=== PATIENT | male | born 1945 | race Caucasian/White ===

== ENCOUNTER 2019-07-30 08:42 | Emergency (ER) | payer OTHER ==
[~2019-07-30] VITALS: Ht 182.9 cm; Wt 88.5 kg
[~2019-07-30 08:42] MED LIST: ASPIRIN EC325 M1 PO; ASPIRIN325 PO; AUGMENTIN 875875 M1 PO; BENAZEPRIL HCL20 MG PO; BYSTOLIC 5 MG5 M1 PO; CELEXA 20 MG TA20 M1 PO; COZAAR100 MG PO; CRESTOR10 MG PO; EFFIENT10 MG PO; IMDUR PO; LOW DOSE ASPIRI81 M1 PO; NITROSTAT0.4 MG SL; NORVASC 2.5 MG2.5 M1 PO; PERCOCET 5-3251 EACH; PERCOCET 5-3251 EACH PO; PROTONIX40 M2 PO; TOPROL XL50 MG PO
[2019-07-30] MEDS ORDERED: NORVASC 2.5 MG2.5 M1 PO (08:55)
[2019-07-30] MEDS ORDERED: TRADJENTA5 MG (08:56)
[2019-07-30] MEDS ORDERED: METFORMIN HCL500 M3 PO (08:56)
[2019-07-30] MEDS ORDERED: IRON18 M1 PO (08:56)
[2019-07-30] MEDS ORDERED: NORCO 5-325 TA1 EAC1 PO (10:03)
[2019-07-30 10:55] VITALS: BP 168/97
== END 2019-07-30 10:56 | disposition home or self-care (01) ==
LOC: M.ERS 08:42
DX: S63.641A Sprain of metacarpophalangeal joint of right thumb, initial encounter (principal); I10 Essential (primary) hypertension; E78.5 Hyperlipidemia, unspecified; Z95.5 Presence of coronary angioplasty implant and graft; W23.0XXA Caught, crushed, jammed, or pinched between moving objects, initial encounter; Y93.89 Activity, other specified; Y92.89 Other specified places as the place of occurrence of the external cause; Y99.8 Other external cause status

== ENCOUNTER → 2019-08-09 | Outpatient (CLI) | payer OTHER ==
[~2019-08-09] MED LIST changes: +IRON18 M1 PO; +METFORMIN HCL500 M3 PO; +NORCO 5-325 TA1 EAC1 PO; +TRADJENTA5 MG
== END ==
LOC: M.MRI 12:50
DX: S63.682A Other sprain of left thumb, initial encounter (principal); M18.11 Unilateral primary osteoarthritis of first carpometacarpal joint, right hand; M25.741 Osteophyte, right hand; M19.031 Primary osteoarthritis, right wrist; X58.XXXA Exposure to other specified factors, initial encounter; Y93.89 Activity, other specified; Y92.89 Other specified places as the place of occurrence of the external cause; Y99.8 Other external cause status